=== PATIENT | male | born 1980 | race Native Hawaiian/Other Pacific Islander ===

== ENCOUNTER 2017-10-25 16:53 | Emergency (ER) | payer OTHER ==
[~2017-10-25] VITALS: Ht 170.2 cm; Wt 86.2 kg
[2017-10-25 16:48] VITALS: TEMP 97.5
[2017-10-25 17:58] VITALS: BP 131/92
== END 2017-10-25 17:59 | disposition home or self-care (01) ==
LOC: ED 16:53
DX: S80.12XA Contusion of left lower leg, initial encounter (principal); W20.8XXA Other cause of strike by thrown, projected or falling object, initial encounter
CPT/HCPCS: 96372; 99283; J1885

== ENCOUNTER 2018-05-09 05:38 | Emergency (ER) | payer OTHER ==
[~2018-05-09] VITALS: Ht 170.2 cm; Wt 87.1 kg
[2018-05-09 05:50] VITALS: BP 110/62; TEMP 97.3
== END 2018-05-09 06:57 | disposition home or self-care (01) ==
LOC: ED 05:38
DX: J32.9 Chronic sinusitis, unspecified (principal); M43.6 Torticollis; M62.838 Other muscle spasm
CPT/HCPCS: 96372; 99282; J1885

== ENCOUNTER 2018-07-25 18:21 | Emergency (ER) | payer OTHER ==
[~2018-07-25] VITALS: Ht 170.2 cm; Wt 91.4 kg
[2018-07-25 20:41] VITALS: BP 109/78; TEMP 98.2
== END 2018-07-25 20:45 | disposition home or self-care (01) ==
LOC: ED 18:21
PROC: 0HCLXZZ Extirpation of Matter from Left Lower Leg Skin, External Approach (ICD-10-PCS; principal; 2018-07-25)
PROC: 0HQLXZZ Repair Left Lower Leg Skin, External Approach (ICD-10-PCS; 2018-07-25)
DX: S80.852A Superficial foreign body, left lower leg, initial encounter (principal); W45.8XXA Other foreign body or object entering through skin, initial encounter
CPT/HCPCS: 90471; 90715; 99282

== ENCOUNTER 2019-11-29 11:22 | Emergency (ER) | payer OTHER ==
[~2019-11-29] VITALS: Ht 170.2 cm; Wt 91.2 kg
[2019-11-29 11:35] VITALS: TEMP 98.7
[2019-11-29 12:52] LABS: PLATELET COUNT 183 K/uL (142-355)
[2019-11-29 12:59] LABS: POTASSIUM 4.4 mmol/L (3.6-5.2); SODIUM 140 mmol/L (136-145)
[2019-11-29 15:12] VITALS: BP 130/79
== END 2019-11-29 15:16 | disposition home or self-care (01) ==
LOC: ED 11:22
PROVIDERS: Family Medicine
DX: I20.8 Other forms of angina pectoris (principal); F41.8 Other specified anxiety disorders
CPT/HCPCS: 36415; 80053; 80307; 81000; 82550; 84484; 85027; 93005; 99283

== ENCOUNTER 2020-06-18 19:17 | Emergency (ER) | payer OTHER ==
[~2020-06-18] VITALS: Ht 170.2 cm; Wt 91.2 kg
[2020-06-18 19:25] LABS: PLATELET COUNT 187 K/uL (142-355)
[2020-06-18 19:34] LABS: POTASSIUM 3.7 mmol/L (3.6-5.2); SODIUM 138 mmol/L (136-145)
[2020-06-18 20:20] LABS: PARTIAL THROMBOPLASTIN TIME 22.7 SECONDS (24.5-33.6)
[2020-06-18 21:33] VITALS: TEMP 98.2
[2020-06-18 22:30] VITALS: BP 124/81
== END 2020-06-18 22:58 | disposition home or self-care (01) ==
LOC: ED 19:17
PROVIDERS: Hospitalist
DX: R07.89 Other chest pain (principal); F41.8 Other specified anxiety disorders; F43.10 Post-traumatic stress disorder, unspecified; Z03.818 Encounter for observation for suspected exposure to other biological agents ruled out
CPT/HCPCS: 36415; 80053; 80307; 80320; 81000; 82550; 82553; 83880; 84484; 85027; 85610; 85730; 87635; 93005; 96374; 99284; J2060; U0003

== ENCOUNTER 2022-11-19 20:16 | Emergency (ER) | payer OTHER ==
[~2022-11-19] VITALS: Ht 170.2 cm; Wt 74.8 kg
[2022-11-19 20:20] VITALS: TEMP 98.2
[2022-11-19 21:40] VITALS: BP 112/70
== END 2022-11-19 21:40 | disposition home or self-care (01) ==
LOC: ED 20:16
DX: S63.501A Unspecified sprain of right wrist, initial encounter (principal); W19.XXXA Unspecified fall, initial encounter
CPT/HCPCS: 99282